=== PATIENT | female | born 1995 | race Hispanic/Latino ===

== ENCOUNTER 2024-03-23 09:40 | Outpatient (CLI) | payer SELFPAY ==
[2024-03-23 10:06] VITALS: BP 106/63; PULSE 78; RESP 16; TEMP 36.6
[2024-03-23 10:10] VITALS: BMI 28.0
--- NOTE | 2024-03-23 11:01 | OB.TRI.NOTE ---
HPI - General General Date of Service: 03/23/24 Chief Complaint: bleeding and sherry HPI Narrative Does not speak Kinyarwanda. Compensation Business Partner services used DOUGLAS TRINIDAD, is a 28 F who presents with bleeding and contractions since last night. Unsure if she is leaking fluid. Complains of a lot of lower abdominal pain and contractions. Had a cerclage placed on 02/26 for incompetent cervix at [facility]. Previous delivery at term . Unable to reviewed records from [facility]. Requested but have not received yet. Difficult exam. Patient uncomfortable and keeps pulling at speculum. Clot noted in vagina. Spotting currently. But did have blood on her legs upon arrival. Appears 2 cm with membranes visible. Suture noted but unclear if intact. Clear fluid on perineum. Not an great deal of fluid but obviously present. ROM collected however blood present. Results negative FHR appropriate for gestational age on EFM. [place] not picking up any contractions. Spoke with Rafael, Dr Cardenas at [facility]. Ok for transport. Requesting BMZ, PCN and magnesium be started Reviewed plan with patient using juice mixer Maternal Data Information Final RICHARD: 07/21/24 Gestational age: 22+6 PFSH PFSH Medical History unable to obtain unable to obtain Home Medications ?Medication ?Instructions ?Recorded ?Last Taken ?Type folic acid 400 mcg tablet 400 mcg PO DAILY 03/23/24 03/22/24 17:00 History 400 mcg vitamins no.159-iron 1 tab PO DAILY 03/23/24 03/22/24 17:00 History fumarate 28 mg-folic acid 800 mcg 1 TAB tablet ( Vitamin) Allergy/AdvReac Type Severity Reaction Status Date / Time No Known Allergies Allergy Verified 03/23/24 10:07 ROS Gastrointestinal Gastrointestinal: Denies cramping or diarrhea Genitourinary Genitourinary: Reports as per HPI and contractions Neurologic Neurologic: Reports as per HPI Psychiatric Psychiatric: Reports as per HPI Physical Exam Const alert and oriented x3 General Appearance: cooperative, well developed and anxious HEENT normocephalic and head/scalp atraumatic Eyes PERRL Neck full ROM Resp normal respiratory effort External Female Exam: normal appearance of the urethra Speculum Exam - Cervix: cervical os open and cervical bleeding Amniotic Fluid: other Perineum noted as wet ROM collected but blood present NST FHR Rate Baby A Baseline: 154 NST Reactive:: Appropriate for gestational age Uterine Activity:: not recording any contractions Assessment & Plan (1) labor in second trimester: QUALIFIERS: labor delivery status: without delivery Qualified Code(s): O60.02 - labor without delivery, second trimester (2) with 22 completed weeks gestation: PLAN: Plan Transfer to Labor and Delivery at [facility]
[2024-03-23 11:32] LABS: ROM Internal Control Test YES-OK TO RESULT pt. (Internal QC); ROM Patient Test Negative (Negative); Record Kit Lot#, ROM+ K1866
[2024-03-23] MEDS: Magnesium Sulfate 4gm/100mL 4 GM/100 ML IV.SOLN. IV (12:15)
[2024-03-23] MEDS: Penicillin G Pot 5,000,000 UNITS in 0.9% Normal Saline (100mL MB+) 100 ML 150 UNITS IV (12:16)
[2024-03-23] MEDS: Betamethasone/Betamethasone 30 MG/5 ML Vial 12 MG IM (12:20)
[2024-03-23] MEDS: Magnesium Sulfate 20 GM/500 ML BAG IV (12:28)
--- NOTE | 2024-03-23 13:20 | NURSING ---
first mobility manager was Rochelle and #[id number] 2nd call was with Lenin #[id number]
== END 2024-03-23 13:25 | disposition short-term general hospital (02) ==
LOC: WPOUT 09:57 → WP 09:57
PROVIDERS: Referring Provider Obstetrics & Gynecology; Visit Provider Obstetrics & Gynecology
DX: O60.02 Preterm labor without delivery, second trimester (principal); Z3A.22 22 weeks gestation of pregnancy
CPT/HCPCS: 96365; 96367; 84112; 96372; 99212; 99221; G0378; G0463; J0702